=== PATIENT | female | born 1985 | race African-American/Black ===

== ENCOUNTER 2019-11-18 03:20 | Emergency (ER) | payer OTHER ==
[~2019-11-18] VITALS: Ht 162.6 cm; Wt 82.0 kg
[2019-11-18] MEDS ORDERED: ONDANSETRON HCL 4MG/2ML INJ IV STA ×2 (03:25→14:27)
[2019-11-18] MEDS ORDERED: MORPHINE SULFATE 4 MG/ML CPJ (NOT FOR IM USE) IV STA ×2 (03:25→14:27)
[2019-11-18] MEDS ORDERED: BACITRACIN ZINC OINT UDPKT TOP ONE (03:30)
[2019-11-18] MEDS ORDERED: LIDOCAINE 1%/EPI 1:100,000 10 ML VIAL IJ ONE ×2 (03:30→04:00)
[2019-11-18] MEDS ORDERED: TETANUS, DIPHTHERIA, PERTUSSIS VAC/PF 0.5ML (>7YR OLD) IM ONE (03:30)
[2019-11-18] MEDS ORDERED: SODIUM CHLORIDE 0.9% 1,000 ML IV ONE (03:30)
[2019-11-18] MEDS ORDERED: LORAZEPAM 2MG/ML CPJ IV ONE (04:00)
[2019-11-18 04:10] LABS: BASOPHILS % 0.6 % (0.0-2.0); EOSINOPHILS % 1.1 % (0.0-5.0); HEMATOCRIT. 39.3 % (36.0-48.0); HEMOGLOBIN. 13.1 g/dL (12.0-16.0); LYMPHOCYTES % 25.8 % (20.0-50.0); MEAN CORPUSCULAR VOLUME 93.1 fL (81.0-99.0); MEAN PLATELET VOLUME 9.8 fl (7.4-10.4); MONOCYTES % 5.4 % (2.0-8.0); NEUTROPHILS % 67.1 % (40.0-76.0); PLATELET 267 x1000/uL (130-400); RED BLOOD CELL COUNT 4.23 mill/uL (4.2-5.4); RED CELL DISTRIBUTION WIDTH 13.7 % (11.6-14.6)
[2019-11-18 04:17] LABS: CHLORIDE 112 mEq/L (98-107)
[2019-11-18 04:21] LABS: ETHANOL BLOOD 105 mg/dL
[2019-11-18 04:22] LABS: HCG SCREEN NEGATIVE; PARTIAL THROMBOPLASTIN TIME 25.5 sec (23.4-31.0); PROTHROMBIN TIME 10.2 sec (9.6-11.0)
[2019-11-18] MEDS ORDERED: MORPHINE SULFATE 4 MG/ML CPJ (NOT FOR IM USE) IV ONE (04:45)
[2019-11-18] MEDS ORDERED: ETOMIDATE 2MG/ML 10ML VIAL IV ONE ×2 (05:00→05:15)
[2019-11-18] MEDS ORDERED: FENTANYL CITRATE/PF 50MCG/ML 2ML VIAL IV ONE (09:30)
[2019-11-18 14:43] VITALS: BP 140/92
== END 2019-11-18 14:30 | disposition short-term general hospital (02) ==
LOC: ER 03:20
DX: S41.112A Laceration without foreign body of left upper arm, initial encounter (principal); J93.9 Pneumothorax, unspecified; I10 Essential (primary) hypertension; J45.909 Unspecified asthma, uncomplicated; Y08.89XA Assault by other specified means, initial encounter; Y93.9 Activity, unspecified; Y92.9 Unspecified place or not applicable; Z88.0 Allergy status to penicillin
CPT/HCPCS: 12005; 36415; 71045; 73060; 80053; 80320; 84703; 85025; 85610; 85730; 86850; 86900; 86901; 90471; 90715; 93005; 96361; 96374; 96375; 96376; 99152; 99291; J2060; J2270; J2405; J3010; J3490; J7030; G0480

== ENCOUNTER 2019-12-04 11:47 | Emergency (ER) | payer OTHER ==
[~2019-12-04] VITALS: Ht 167.6 cm; Wt 82.0 kg
[2019-12-04 13:20] LABS: BASOPHILS % 0.6 % (0.0-2.0); HEMATOCRIT. 37.7 % (36.0-48.0); HEMOGLOBIN. 12.5 g/dL (12.0-16.0); LYMPHOCYTES % 22.4 % (20.0-50.0); MEAN CORPUSCULAR HEMOGLOBIN 30.3 pg (28.0-32.0); MEAN CORPUSCULAR VOLUME 91.3 fL (81.0-99.0); MEAN PLATELET VOLUME 8.6 fl (7.4-10.4); MONOCYTES % 12.2 % (2.0-8.0); NEUTROPHILS % 63.8 % (40.0-76.0); PLATELET 383 x1000/uL (130-400); RED BLOOD CELL COUNT 4.13 mill/uL (4.2-5.4)
[2019-12-04 13:23] LABS: CHLORIDE 93 mEq/L (98-107)
[2019-12-04 13:28] LABS: CLARITY URINE TURBID (CLEAR); COLOR URINE DARK YELLOW (YELLOW); KETONES URINE TRACE (NEGATIVE); LEUKOCYTE ESTERASE URINE 2+ (NEGATIVE); NITRITE URINE NEGATIVE (NEGATIVE); OCCULT BLOOD URINE NEGATIVE (NEGATIVE); PH URINE 6.5 (4.5-8.0); PROTEIN URINE TRACE (NEGATIVE); SPECIFIC GRAVITY URINE 1.019 (1.005-1.030)
[2019-12-04 13:28] LABS: INR 1.1; PROTHROMBIN TIME 11.3 sec (9.6-11.0)
[2019-12-04] MEDS ORDERED: MAGNESIUM CITRATE 300ML SOLUTION PO ONE (13:45)
[2019-12-04] MEDS ORDERED: LACTULOSE 20G/30ML UDC PO ONE (13:45)
[2019-12-04 13:50] LABS: HCG SCREEN NEGATIVE
[2019-12-04 14:43] VITALS: BP 135/81
== END 2019-12-04 14:52 | disposition home or self-care (01) ==
LOC: ER 11:47
DX: K59.00 Constipation, unspecified (principal); I10 Essential (primary) hypertension; J45.909 Unspecified asthma, uncomplicated; F12.10 Cannabis abuse, uncomplicated; Z88.0 Allergy status to penicillin
CPT/HCPCS: 36415; 74176; 80053; 81003; 84703; 85025; 93005; 99285

== ENCOUNTER 2020-09-04 16:00 | Emergency (ER) | payer OTHER | END 2020-09-04 17:51 | disposition left against medical advice (07) | LOC: ER 16:00 | DX: Z53.21 Procedure and treatment not carried out due to patient leaving prior to being seen by health care provider (principal) ==

== ENCOUNTER 2020-09-22 12:27 | Emergency (ER) | payer OTHER ==
[~2020-09-22] VITALS: Ht 177.8 cm; Wt 79.0 kg
[2020-09-22 12:32] VITALS: BP 164/92
[2020-09-22] MEDS ORDERED: ONDANSETRON 4MG ODT PO ONE (13:00)
== END 2020-09-22 13:06 | disposition left against medical advice (07) ==
LOC: ER 12:27
DX: R11.2 Nausea with vomiting, unspecified (principal); R10.84 Generalized abdominal pain
CPT/HCPCS: 99283